=== PATIENT | male | born 1960 | race Caucasian/White ===

== ENCOUNTER 2024-05-05 06:52 | Inpatient (IN) | payer OTHER ==
[~2024-05-05] VITALS: Ht 177.8 cm; Wt 117.5 kg
[2024-05-05 07:09] VITALS: BP_SYST 183; PULSE 90; RESP 20; TEMP 98; O2SAT 98
[2024-05-05] MEDS: MAG HYDROX/AL HYDROX/SIMETH 30 ML, DICYCLOMINE HCL 20 MG, LIDOCAINE VISCOUS 2% 15ML (PO... PO ONE (07:37)
[2024-05-05] MEDS: cloNIDine HCL 0.1 MG TABLET PO ONE (07:53)
[2024-05-05 08:28] LABS: BASOPHILS # (AUTO) 0.1 K/uL (0.0-0.2); BASOPHILS % (AUTO) 0.9 % (0.0-2.0); EOSINOPHILS # (AUTO) 0.1 K/uL (0.0-0.4); EOSINOPHILS % (AUTO) 0.7 % (0.0-4.0); HEMATOCRIT 44.1 % (36-54); HEMOGLOBIN 15.3 g/dL (14.0-18.0); LYMPHOCYTES # (AUTO) 2.3 K/uL (1.0-5.5); MEAN CORPUSCULAR HEMOGLOBIN 30 pg (27-31); MEAN CORPUSCULAR HGB CONC 35 % (32-36); MEAN CORPUSCULAR VOLUME 86 fL (79.0-98.0); MONOCYTES # (AUTO) 0.6 K/uL (0.0-1.0); MONOCYTES % (AUTO) 6.7 % (1.7-9.3); NEUTROPHILS # (AUTO) 5.9 K/uL (1.8-7.7); NEUTROPHILS % (AUTO) 65.7 % (40.0-70.0); PLATELET COUNT (AUTO) 289 K/uL (130-430); RED BLOOD CELL COUNT(AUTO) 5.14 MIL/uL (4.2-6.2); RED CELL DISTRIBUTION WIDTH 14.1 % (9.0-15.0); WHITE BLOOD COUNT (AUTO) 8.9 K/uL (4.8-10.8)
[2024-05-05 08:59] LABS: ANION GAP 11 (5-15); CALCIUM 8.6 mg/dL (8.4-11.0); CARBON DIOXIDE 23 mmol/L (23-29); CHLORIDE 102 mmol/L (98-107); CREATININE 1.06 mg/dL (0.55-1.30); GFR AFRICAN AMERICAN 91 mL/min (>90); GLUCOSE 142 mg/dL (74-106); POTASSIUM 4.1 mmol/L (3.5-5.1); SODIUM SERUM 136 mmol/L (136-145); UREA NITROGEN, BLOOD 11 mg/dL (8-21)
[2024-05-05 09:00] LABS: GFR NON AFRICAN-AMERICAN 75 mL/min (>90)
[2024-05-05 09:41] LABS: INR 1.7 (0.80-1.20); PROTHROMBIN TIME 16.7 SECS (9.5-12.5)
[2024-05-05] MEDS: ASPIRIN 81 MG TAB.CHEW PO ONE (09:41)
[2024-05-05] MEDS: ENOXAPARIN SODIUM 100 MG/ML SYRINGE SUBCUT ONE (09:42)
[2024-05-05] MEDS: NITROGLYCERIN 1 INCH (GM) OINT. TP ONE (09:43)
[2024-05-05 11:22] VITALS: BP_SYST 149; PULSE 77; RESP 17
[2024-05-05 11:49] VITALS: BP_SYST 149; PULSE 77; RESP 17; TEMP 97.2; O2SAT 97
[2024-05-05 11:56] VITALS: O2SAT 97
[2024-05-05 15:40] LABS: ALBUMIN 3.2 g/dL (3.4-4.8); CALCIUM 8.6 mg/dL (8.4-11.0); CREATININE 1.02 mg/dL (0.55-1.30); POTASSIUM 4.2 mmol/L (3.5-5.1); TOTAL BILIRUBIN 0.3 mg/dL (0.0-1.0); TOTAL PROTEIN, SERUM 7.3 g/dL (6.4-8.3)
[2024-05-05 16:00] VITALS: BP_SYST 136; PULSE 72; RESP 16; TEMP 97.8; O2SAT 96
[2024-05-05] MEDS ORDERED: NITROGLYCERIN 0.4 MG TAB.SUBL SL PRN (16:30)
[2024-05-05] MEDS: ASPIRIN 81 MG TABLET(ECOTRIN) PO ONE (16:48)
[2024-05-05] MEDS: PANTOPRAZOLE SODIUM 40 MG TAB PO ONE (16:50)
[2024-05-05] MEDS: METOPROLOL SUCCINATE 25 MG TAB.SR.24H (TOPROL XL) PO ONE (16:51)
[2024-05-05] MEDS: ATORVASTATIN 20 MG TABLET PO ONE (16:57)
[2024-05-05 19:35] VITALS: BP_SYST 156; PULSE 78; RESP 17; TEMP 98; O2SAT 98
[2024-05-05] MEDS ORDERED: *LOVENOX 1MG/KG Q12H/PHARMACY XX PRN (21:00)
[2024-05-05] MEDS: METOPROLOL SUCCINATE 25 MG TAB.SR.24H (TOPROL XL) PO SCH (22:21)
[2024-05-05] MEDS: ENOXAPARIN SODIUM 100 MG/ML SYRINGE SUBCUT SCH (22:22)
[2024-05-06] VITALS (7 sets, daily range): BP systolic 154–163; PULSE 81–86; RESP 17–20; TEMP 97.5–98.8; O2SAT 96–98
[2024-05-06 05:45] LABS: BASOPHILS % (AUTO) 0.4 % (0.0-2.0); EOSINOPHILS % (AUTO) 0.1 % (0.0-4.0); HEMOGLOBIN 14.4 g/dL (14.0-18.0); LYMPHOCYTES # (AUTO) 1.7 K/uL (1.0-5.5); LYMPHOCYTES % (AUTO) 13.7 % (20.5-51.5); MEAN CORPUSCULAR HEMOGLOBIN 29 pg (27-31); MEAN CORPUSCULAR HGB CONC 34 % (32-36); MEAN CORPUSCULAR VOLUME 85 fL (79.0-98.0); MONOCYTES # (AUTO) 0.8 K/uL (0.0-1.0); MONOCYTES % (AUTO) 6.7 % (1.7-9.3); NEUTROPHILS # (AUTO) 9.6 K/uL (1.8-7.7); NEUTROPHILS % (AUTO) 79.1 % (40.0-70.0); PLATELET COUNT (AUTO) 266 K/uL (130-430); RED BLOOD CELL COUNT(AUTO) 4.93 MIL/uL (4.2-6.2); RED CELL DISTRIBUTION WIDTH 13.9 % (9.0-15.0); WHITE BLOOD COUNT (AUTO) 12.1 K/uL (4.8-10.8)
[2024-05-06 07:25] LABS: PROTHROMBIN TIME 10.5 SECS (9.5-12.5)
[2024-05-06 07:29] LABS: ALBUMIN 3.3 g/dL (3.4-4.8); CALCIUM 8.2 mg/dL (8.4-11.0); CREATININE 0.93 mg/dL (0.55-1.30); TOTAL BILIRUBIN 0.5 mg/dL (0.0-1.0); TOTAL PROTEIN, SERUM 7.4 g/dL (6.4-8.3)
[2024-05-06 07:44] LABS: FREE T4 (FREE THYROXINE) 0.9 ng/dl (0.8-1.5); THYROID STIMULATING HORMONE 1.05 uIu/mL (0.36-3.74)
[2024-05-06] MEDS: PANTOPRAZOLE SODIUM 40 MG TAB PO SCH (08:34)
[2024-05-06] MEDS: ASPIRIN 81 MG TABLET(ECOTRIN) PO SCH (08:34)
[2024-05-06] MEDS: ATORVASTATIN 20 MG TABLET PO SCH (08:34)
[2024-05-06] MEDS ORDERED: ASPIRIN 81 MG TAB.CHEW PO SCH (09:00)
[2024-05-06] MEDS: METOPROLOL SUCCINATE 50 MG TAB.SR.24H (TOPROL XL) PO SCH (10:15)
[2024-05-06] MEDS ORDERED: METO-306 PO (16:35)
[2024-05-06] MEDS ORDERED: LOSA-412 PO (16:35)
[2024-05-06] MEDS ORDERED: Aspirin Ec PO (16:35)
[2024-05-06] MEDS ORDERED: METF-1069 PO (16:35)
[2024-05-06] MEDS ORDERED: LIP20 PO (16:35)
[2024-05-06] MEDS ORDERED: NITSL SL (16:35)
[2024-05-06] MEDS: LOSARTAN POTASSIUM 25 MG TABLET PO ONE (17:10)
[2024-05-06] MEDS: metFORMIN HCL 500 MG TABLET PO ONE (17:11)
[2024-05-06] MEDS ORDERED: LOSARTAN POTASSIUM 25 MG TABLET PO SCH (21:00)
[2024-05-07] MEDS ORDERED: metFORMIN HCL 500 MG TABLET PO SCH (09:00)
== END 2024-05-06 17:20 | disposition home or self-care (01) | DRG 282 ==
LOC: SED 06:52 → STU 07:13
PROVIDERS: ADMIT Internal Medicine; ATTEND Internal Medicine
DX: I21.4 Non-ST elevation (NSTEMI) myocardial infarction (principal); E66.01 Morbid (severe) obesity due to excess calories; I10 Essential (primary) hypertension; E11.9 Type 2 diabetes mellitus without complications; E78.5 Hyperlipidemia, unspecified; Z68.37 Body mass index [BMI] 37.0-37.9, adult; Z87.891 Personal history of nicotine dependence; Z83.3 Family history of diabetes mellitus
CPT/HCPCS: 36415; 71045; 80048; 80053; 80061; 83037; 84439; 84443; 84484; 85025; 85610; 85730; 93005; 93306; 99291; G0378; J1650; J2001

== ENCOUNTER 2024-05-23 00:10 | Inpatient (IN) | payer OTHER ==
[~2024-05-23] VITALS: Ht 177.8 cm; Wt 110.8 kg
[2024-05-23] VITALS (9 sets, daily range): BP systolic 128–169; PULSE 63–81; RESP 18; TEMP 97.1–97.5; O2SAT 96–98
[~2024-05-23 00:10] MED LIST: Aspirin Ec PO; LIP20 PO; LOSA-412 PO; METF-1069 PO; METO-306 PO; NITSL SL
[2024-05-23 00:54] LABS: BASOPHILS # (AUTO) 0.3 K/uL (0.0-0.2); BASOPHILS % (AUTO) 3.5 % (0.0-2.0); EOSINOPHILS # (AUTO) 0.1 K/uL (0.0-0.4); EOSINOPHILS % (AUTO) 0.8 % (0.0-4.0); HEMATOCRIT 42.4 % (36-54); HEMOGLOBIN 14.8 g/dL (14.0-18.0); LYMPHOCYTES # (AUTO) 1.8 K/uL (1.0-5.5); LYMPHOCYTES % (AUTO) 19.5 % (20.5-51.5); MEAN CORPUSCULAR HEMOGLOBIN 30 pg (27-31); MEAN CORPUSCULAR HGB CONC 35 % (32-36); MEAN CORPUSCULAR VOLUME 85 fL (79.0-98.0); MONOCYTES # (AUTO) 0.6 K/uL (0.0-1.0); NEUTROPHILS # (AUTO) 6.5 K/uL (1.8-7.7); NEUTROPHILS % (AUTO) 70.2 % (40.0-70.0); PLATELET COUNT (AUTO) 391 K/uL (130-430); RED BLOOD CELL COUNT(AUTO) 4.99 MIL/uL (4.2-6.2); RED CELL DISTRIBUTION WIDTH 13.2 % (9.0-15.0); WHITE BLOOD COUNT (AUTO) 9.2 K/uL (4.8-10.8)
[2024-05-23 01:27] LABS: ANION GAP 7 (5-15); CALCIUM 8.9 mg/dL (8.4-11.0); CARBON DIOXIDE 26 mmol/L (23-29); CHLORIDE 101 mmol/L (98-107); GFR AFRICAN AMERICAN 87 mL/min (>90); GFR NON AFRICAN-AMERICAN 72 mL/min (>90); GLUCOSE 133 mg/dL (74-106); POTASSIUM 3.5 mmol/L (3.5-5.1); SODIUM SERUM 134 mmol/L (136-145); UREA NITROGEN, BLOOD 11 mg/dL (8-21)
[2024-05-23] MEDS ORDERED: [UNRECOGNIZED DRUG - CODE] (02:04)
[2024-05-23] MEDS ORDERED: ATOR40TA68 PO (02:04)
[2024-05-23] MEDS ORDERED: CLOP75TA32 PO (02:04)
[2024-05-23] MEDS ORDERED: NITR0.4T47 SL (02:04)
[2024-05-23] MEDS ORDERED: [UNRECOGNIZED DRUG - CODE] XX (02:04)
[2024-05-23] MEDS ORDERED: LOSA25TA18 PO (02:04)
[2024-05-23] MEDS ORDERED: ASPI-1393 PO (02:04)
[2024-05-23] MEDS ORDERED: ATOR20TA64 PO (02:04)
[2024-05-23] MEDS ORDERED: HYDROcodone/ACETAMIN 10-325 MG TAB PO ONE (02:30)
[2024-05-23] MEDS ORDERED: HYDROcodone/ACETAMIN 5-325 MG TAB (NORCO/ VICODIN) PO ONE (02:30)
[2024-05-23] MEDS ORDERED: ONDANSETRON HCL 4 MG/2 ML VIAL IVP ONE (02:30)
[2024-05-23] MEDS ORDERED: ACETAMINOPHEN 325 MG TABLET PO ONE (02:30)
[2024-05-23] MEDS ORDERED: ACETAMINOPHEN 325 MG TABLET PO PRN (03:30)
[2024-05-23] MEDS ORDERED: HYDROcodone/ACETAMIN 10-325 MG TAB PO PRN (03:30)
[2024-05-23] MEDS ORDERED: ONDANSETRON HCL 4 MG/2 ML VIAL IVP PRN (03:30)
[2024-05-23] MEDS: HYDROcodone/ACETAMIN 5-325 MG TAB (NORCO/ VICODIN) PO PRN (04:33)
[2024-05-23] MEDS ORDERED: NITROGLYCERIN 0.4 MG TAB.SUBL SL PRN (08:15)
[2024-05-23] MEDS: CLOPIDOGREL BISULFATE 75 MG TABLET PO SCH (08:57)
[2024-05-23] MEDS: ASPIRIN 81 MG TABLET(ECOTRIN) PO SCH (08:57)
[2024-05-23] MEDS: METOPROLOL SUCCINATE 50 MG TAB.SR.24H (TOPROL XL) PO SCH (08:57)
[2024-05-23] MEDS: LOSARTAN POTASSIUM 25 MG TABLET PO SCH (08:58)
[2024-05-23] MEDS: ATORVASTATIN 20 MG TABLET PO SCH (08:58)
[2024-05-24 00:30] VITALS: BP_SYST 152; PULSE 60; RESP 18; TEMP 97.5
[2024-05-24 06:28] LABS: BASOPHILS % (AUTO) 0.5 % (0.0-2.0); EOSINOPHILS # (AUTO) 0.1 K/uL (0.0-0.4); EOSINOPHILS % (AUTO) 0.9 % (0.0-4.0); HEMATOCRIT 42.6 % (36-54); HEMOGLOBIN 14.4 g/dL (14.0-18.0); MEAN CORPUSCULAR HEMOGLOBIN 29 pg (27-31); MEAN CORPUSCULAR HGB CONC 34 % (32-36); MEAN CORPUSCULAR VOLUME 86 fL (79.0-98.0); MONOCYTES # (AUTO) 0.6 K/uL (0.0-1.0); MONOCYTES % (AUTO) 7.3 % (1.7-9.3); NEUTROPHILS # (AUTO) 4.8 K/uL (1.8-7.7); NEUTROPHILS % (AUTO) 56.3 % (40.0-70.0); PLATELET COUNT (AUTO) 355 K/uL (130-430); RED BLOOD CELL COUNT(AUTO) 4.98 MIL/uL (4.2-6.2); RED CELL DISTRIBUTION WIDTH 13.6 % (9.0-15.0); WHITE BLOOD COUNT (AUTO) 8.6 K/uL (4.8-10.8)
[2024-05-24 06:42] LABS: ALBUMIN 3.2 g/dL (3.4-4.8); CALCIUM 8.5 mg/dL (8.4-11.0); CREATININE 1.04 mg/dL (0.55-1.30); POTASSIUM 4.1 mmol/L (3.5-5.1); TOTAL BILIRUBIN 0.3 mg/dL (0.0-1.0); TOTAL PROTEIN, SERUM 7.3 g/dL (6.4-8.3)
[2024-05-24 08:00] VITALS: BP_SYST 143; PULSE 61; RESP 18; TEMP 97.1; O2SAT 97
[2024-05-24 11:46] VITALS: BP_SYST 147; PULSE 66; RESP 13; TEMP 97.6; O2SAT 95
[2024-05-24 12:25] VITALS: BP_SYST 147; PULSE 68; RESP 16; TEMP 97; O2SAT 95
== END 2024-05-24 12:18 | disposition home or self-care (01) | DRG 282 ==
LOC: SED 00:10 → STU 02:19
PROVIDERS: ADMIT Preventive Medicine Preventive Medicine/Occupational Environmental Medicine; ATTEND Preventive Medicine Preventive Medicine/Occupational Environmental Medicine
DX: I25.10 Atherosclerotic heart disease of native coronary artery without angina pectoris (principal); I21.9 Acute myocardial infarction, unspecified; I22.2 Subsequent non-ST elevation (NSTEMI) myocardial infarction; I10 Essential (primary) hypertension; E66.01 Morbid (severe) obesity due to excess calories; E11.9 Type 2 diabetes mellitus without complications; E78.5 Hyperlipidemia, unspecified; Z79.84 Long term (current) use of oral hypoglycemic drugs; Z79.82 Long term (current) use of aspirin; Z79.899 Other long term (current) drug therapy; Z68.35 Body mass index [BMI] 35.0-35.9, adult; Z83.3 Family history of diabetes mellitus; Z87.891 Personal history of nicotine dependence
CPT/HCPCS: 36415; 71045; 80048; 80053; 80061; 83880; 84484; 85025; 93005; 93306; 99285; G0378

== ENCOUNTER 2024-06-05 01:15 | Emergency (ER) | payer OTHER ==
[~2024-06-05] VITALS: Ht 177.8 cm; Wt 104.3 kg
[~2024-06-05 01:15] MED LIST changes: +ASPI-1393 PO; +ATOR20TA64 PO; +ATOR40TA68 PO; +CLOP75TA32 PO; +LOSA25TA18 PO; +NITR0.4T47 SL; +[UNRECOGNIZED DRUG - CODE]; +[UNRECOGNIZED DRUG - CODE] XX
[2024-06-05 01:20] VITALS: BP_SYST 134; PULSE 68; RESP 20; TEMP 96.7; O2SAT 97
[2024-06-05] MEDS: GLUCAGON,HUMAN RECOMBINANT 1 MG VIAL IVP ONE (02:17)
[2024-06-05] MEDS: METOCLOPRAMIDE HCL 10 MG/2 ML VIAL IVP ONE (02:18)
[2024-06-05] MEDS: methylPREDNISolone SOD SUCC/PF 62.5 MG/ML VIAL IVP ONE (02:18)
[2024-06-05] MEDS: NACL 0.9% 1,000 ML IV ONE (02:23)
[2024-06-05] MEDS ORDERED: METH-776 PO (02:49)
[2024-06-05 02:54] VITALS: BP_SYST 134; PULSE 68; RESP 20; TEMP 96.7; O2SAT 97
== END 2024-06-05 02:52 | disposition home or self-care (01) ==
LOC: SED 01:15
DX: J38.4 Edema of larynx (principal); E11.9 Type 2 diabetes mellitus without complications; I10 Essential (primary) hypertension; E78.5 Hyperlipidemia, unspecified; I25.2 Old myocardial infarction; Z88.5 Allergy status to narcotic agent; Z79.899 Other long term (current) drug therapy; Z79.2 Long term (current) use of antibiotics
CPT/HCPCS: 99284; 96374; 96375; 96361; 70360; J1610; J2765; J7030; J2930